=== PATIENT | female | born 1995 | race Two or more races ===

== ENCOUNTER 2018-09-18 04:50 | Inpatient (IN) | payer OTHER ==
[~2018-09-18] VITALS: Ht 157.5 cm; Wt 68.0 kg
[~2018-09-18 04:50] MED LIST: GILTUSS LIQUID237 M1 PO; PROVENTIL3 ML/2.5 M IH
[2018-09-18] MEDS ORDERED: SYNTHROID50 MCG PO (06:23)
[2018-09-18] MEDS ORDERED: VITAMIN D2000 UNIT (06:24)
[2018-09-18] MEDS ORDERED: PRENATAL TABLE1 EAC1 PO (06:24)
== END 2018-09-20 12:33 | disposition home or self-care (01) | DRG 807 ==
LOC: OB/GYN 04:50 → LDR 04:50 → OB/GYN 14:00
PROVIDERS: ADMIT Obstetrics & Gynecology
PROC: 10E0XZZ Delivery of Products of Conception, External Approach (ICD-10-PCS; principal; 2018-09-18)
PROC: 4A1HXCZ Monitoring of Products of Conception, Cardiac Rate, External Approach (ICD-10-PCS; 2018-09-18)
PROC: 3E033VJ Introduction of Other Hormone into Peripheral Vein, Percutaneous Approach (ICD-10-PCS; 2018-09-18)
PROC: 0HQ9XZZ Repair Perineum Skin, External Approach (ICD-10-PCS; 2018-09-18)
DX: O70.0 First degree perineal laceration during delivery (principal); Z37.0 Single live birth; Z3A.39 39 weeks gestation of pregnancy

== ENCOUNTER 2023-01-31 11:42 | Emergency (ER) | payer OTHER ==
[~2023-01-31] VITALS: Ht 157.5 cm; Wt 56.7 kg
[~2023-01-31 11:42] MED LIST changes: +PRENATAL TABLE1 EAC1 PO; +SYNTHROID50 MCG PO; +VITAMIN D2000 UNIT
[2023-01-31] MEDS ORDERED: CARAFATE1 GM PO (17:35)
== END 2023-01-31 17:38 | disposition home or self-care (01) ==
LOC: ER 11:42
DX: N93.9 Abnormal uterine and vaginal bleeding, unspecified (principal)

== ENCOUNTER 2023-06-07 19:33 | Emergency (ER) | payer OTHER ==
[~2023-06-07] VITALS: Ht 157.5 cm; Wt 56.2 kg
[~2023-06-07 19:33] MED LIST changes: +CARAFATE1 GM PO
[2023-06-07 23:18] LABS: HEMATOCRIT 32.3 % (36.0-45.00); HEMOGLOBIN 10.8 g/dL (12.0-15.00); MEAN CELL VOLUME 78.6 fL (80.00-100.00); MEAN CORPUSCULAR HEMOGLOBIN 26.2 pg (27.00-32.0); MEAN CORPUSCULAR HGB CONC 33.3 g/dl (32.0-36.0); PLATELET COUNT 248 K/uL (150-450); RED BLOOD COUNT 4.11 M/uL (4.00-6.00); RED CELL DISTRIBUTION WIDTH 15.7 % (11.5-14.5)
[2023-06-07 23:22] LABS: PH,URINE 5.5 (5.0-8.0); URINE APPEARANCE Clear; URINE BILIRRUBIN Negative (NEGATIVE); URINE BLOOD Negative; URINE COLOR Yellow; URINE GLUCOSE Negative (NEGATIVE); URINE LEUKOCYTE Trace; URINE NITRATE Negative; URINE PROTEIN Negative (NEGATIVE)
[2023-06-07 23:26] LABS: URINE BACTERIA 880.5 uL (0.0-1933); URINE EPITHELIAL CELLS 11.5 uL (0.0-38.8); URINE RBC 6.8 uL (0.0-20.8); URINE WBC 24.5 uL (0.0-23.2)
[2023-06-07 23:38] LABS: ALBUMIN 3.5 gm/dL (3.4-5.0); BILIRUBIN TOTAL 0.43 mg/dL (0.3-1.2); CALCIUM 8.6 mg/dL (8.5-10.1); CREATININE SERUM 0.83 mg/dL (0.55-1.02); GFR 80.72; POTASSIUM 3.28 mEq/L (3.5-5.1); TOTAL PROTEIN 7.5 gm/dL (6.4-8.2)
[2023-06-08] MEDS ORDERED: KETO10TA2 PO (03:16)
== END 2023-06-08 03:37 | disposition home or self-care (01) ==
LOC: ER 19:33
PROVIDERS: General Practice
DX: R10.32 Left lower quadrant pain (principal); N83.292 Other ovarian cyst, left side; N83.291 Other ovarian cyst, right side